=== PATIENT | male | born 1955 | race Caucasian/White ===

== ENCOUNTER 2023-08-15 09:43 | Day surgery (SDC) | payer MEDICARE ==
[2023-08-15] MEDS ORDERED: Labetalol 100 MG/20 ML MDV IV ONE (09:44)
[2023-08-15] MEDS ORDERED: Rocuronium 100 MG/10 ML MDV IV ONE (09:44)
[2023-08-15] MEDS ORDERED: Glycopyrrolate 0.2 MG/ML 5 ML MDV IV ONE (09:44)
[2023-08-15] MEDS ORDERED: Sugammadex Sodium 200 MG/2 ML VIAL IV ONE (09:44)
[2023-08-15] MEDS ORDERED: Ondansetron 4 MG/2 ML SDV IVPUSH ONE (09:44)
[2023-08-15] MEDS ORDERED: fentaNYL 100 MCG/2 ML SDV IV ONE (09:44)
[2023-08-15] MEDS ORDERED: HYDROmorphone 2 MG/ML SDV IV ONE (09:44)
[2023-08-15] MEDS ORDERED: Propofol 200 MG/20 ML SDV IV ONE (09:44)
[2023-08-15] MEDS ORDERED: Midazolam 1 MG/ML 2 ML SDV IV ONE (09:44)
[2023-08-15] MEDS ORDERED: Sodium Chloride 0.9% 10 ML Syringe FLUSH PRN (11:07)
[2023-08-15] MEDS ORDERED: ceFAZolin 2 GM Vial IV ONE (11:11)
[2023-08-15] MEDS: Lactated Ringers 1,000 ML IV SCH (11:46)
[2023-08-15] MEDS: Bupivacaine 0.5%/EPINEPHrine 1:200,000 30 ML SDV INJECT ONE (12:40)
[2023-08-15] MEDS ORDERED: Lactated Ringers 1,000 ML IV ONE (16:03)
== END 2023-08-15 16:00 | disposition home or self-care (01) ==
LOC: FB.SDS 09:43
PROVIDERS: ATTEND Surgery
DX: K81.1 Chronic cholecystitis (principal); K42.9 Umbilical hernia without obstruction or gangrene; E78.5 Hyperlipidemia, unspecified; G62.9 Polyneuropathy, unspecified; I10 Essential (primary) hypertension; Z79.899 Other long term (current) drug therapy; Z98.890 Other specified postprocedural states; Z88.8 Allergy status to other drugs, medicaments and biological substances
CPT/HCPCS: 00790; 82947; 88302; 88304; 93005; 93010; J0690; J1170; J1921; J2250; J2405; J2704; J3010; J3490; J7120